=== PATIENT | female | born 1995 | race Caucasian/White ===

== ENCOUNTER 2019-06-05 12:20 | Observation (INO) | payer OTHER ==
[~2019-06-05] VITALS: Ht 157.5 cm; Wt 68.0 kg
[2019-06-05] MEDS ORDERED: PREN-380 PO (12:30)
[2019-06-05 13:22] LABS: BASOPHILS % (AUTO) 0.3 % (0.0-2.0); EOSINOPHILS # (AUTO) 0.1 K/uL (0-0.4); EOSINOPHILS % (AUTO) 0.9 % (0.0-4.0); HEMATOCRIT 37.2 % (36-48); HEMOGLOBIN 12.4 g/dL (12.0-16.0); LYMPHOCYTES # (AUTO) 1.3 K/uL (2.5-16.5); LYMPHOCYTES % (AUTO) 15.9 % (20.5-51.1); MEAN CORPUSCULAR HEMOGLOBIN 31 pg (27-31); MEAN CORPUSCULAR HGB CONC 33 g/dL (33-37); MEAN CORPUSCULAR VOLUME 91.2 fL (80-94); MONOCYTES # (AUTO) 0.4 K/uL (0.8-1.0); MONOCYTES % (AUTO) 5.2 % (1.7-9.3); NEUTROPHILS # (AUTO) 6.4 K/uL (1.8-7.7); NEUTROPHILS % (AUTO) 77.7 % (42.2-75.2); PLATELET COUNT (AUTO) 202 K/uL (140-450); RED BLOOD CELL COUNT(AUTO) 4.08 MIL/uL (4.20-5.40); RED CELL DISTRIBUTION WIDTH 13.2 % (11.6-13.7); WHITE BLOOD COUNT (AUTO) 8.3 K/uL (4.8-10.8)
[2019-06-05 14:12] LABS: PROTHROMBIN TIME 9.3 secs (10.8-13.4)
== END 2019-06-05 16:54 | disposition home or self-care (01) ==
LOC: MLD 12:20
PROVIDERS: ADMIT Obstetrics & Gynecology; ATTEND Obstetrics & Gynecology
DX: O9A.213 Injury, poisoning and certain other consequences of external causes complicating pregnancy, third trimester (principal); V89.2XXA Person injured in unspecified motor-vehicle accident, traffic, initial encounter; Y93.89 Activity, other specified; Y92.410 Unspecified street and highway as the place of occurrence of the external cause; Z88.2 Allergy status to sulfonamides; Z3A.35 35 weeks gestation of pregnancy
CPT/HCPCS: 36415; 76805; 85025; 85379; 85384; 85610; 85730; 86886; 86900; 86901; G0378; Q0092

== ENCOUNTER 2019-07-13 14:21 | Observation (INO) | payer OTHER ==
[~2019-07-13] VITALS: Ht 157.5 cm; Wt 70.8 kg
[~2019-07-13 14:21] MED LIST: PREN-380 PO
[2019-07-13 14:45] VITALS: BP 121/72
[2019-07-13] MEDS ORDERED: ACYC800T1 PO (15:10)
== END 2019-07-13 17:10 | disposition home or self-care (01) ==
LOC: MLD 14:21
PROVIDERS: ADMIT Obstetrics & Gynecology; ATTEND Obstetrics & Gynecology
DX: O36.8130 Decreased fetal movements, third trimester, not applicable or unspecified (principal); O48.0 Post-term pregnancy; Z3A.41 41 weeks gestation of pregnancy
CPT/HCPCS: 76815; 81000; G0378; Q0092

== ENCOUNTER 2019-07-14 10:16 | Inpatient (IN) | payer OTHER ==
[~2019-07-14] VITALS: Ht 157.5 cm; Wt 70.8 kg
[~2019-07-14 10:16] MED LIST changes: +ACYC800T1 PO; +BUPIVACAINE-MPF 0.75% 10 ML VIAL INJ ONE; +MORPHINE PRES FREE 10 MG/10 ML AMP IV ONE
[2019-07-14] MEDS ORDERED: METHYLERGONOVINE 0.2 MG/ML AMP IM PRN (10:40)
[2019-07-14] MEDS ORDERED: CARBOPROST 250 MCG/ML AMP IM PRN (10:40)
[2019-07-14 11:00] VITALS: BP 128/83
[2019-07-14 11:31] LABS: BASOPHILS % (AUTO) 0.3 % (0.0-2.0); EOSINOPHILS # (AUTO) 0.1 K/uL (0-0.4); EOSINOPHILS % (AUTO) 0.9 % (0.0-4.0); HEMOGLOBIN 13.2 g/dL (12.0-16.0); LYMPHOCYTES # (AUTO) 1.5 K/uL (2.5-16.5); LYMPHOCYTES % (AUTO) 17.5 % (20.5-51.1); MEAN CORPUSCULAR HEMOGLOBIN 31 pg (27-31); MEAN CORPUSCULAR HGB CONC 34 g/dL (33-37); MEAN CORPUSCULAR VOLUME 91.5 fL (80-94); MONOCYTES # (AUTO) 0.6 K/uL (0.8-1.0); MONOCYTES % (AUTO) 6.3 % (1.7-9.3); NEUTROPHILS # (AUTO) 6.6 K/uL (1.8-7.7); PLATELET COUNT (AUTO) 199 K/uL (140-450); RED BLOOD CELL COUNT(AUTO) 4.27 MIL/uL (4.20-5.40); RED CELL DISTRIBUTION WIDTH 13.5 % (11.6-13.7); WHITE BLOOD COUNT (AUTO) 8.8 K/uL (4.8-10.8)
[2019-07-14 11:44] LABS: APPEARANCE,URINE CLEAR (CLEAR); BILIRUBIN,URINE NEGATIVE (NEGATIVE); BLOOD, URINE 3+ (NEGATIVE); COLOR,URINE YELLOW (YELLOW); LEUKOCYTE ESTERASE ,URINE NEGATIVE (NEGATIVE); NITRITE, URINE NEGATIVE (NEGATIVE); PH,URINE 6.5 (5.0-9.0); UGLUCOSE NEGATIVE (NEGATIVE)
[2019-07-14] MEDS: MISOPROSTOL 25 MCG TAB VG SCH ×2 (11:54→15:56)
[2019-07-14 12:09] LABS: WBC,URINE 0-5 /HPF (0-5)
[2019-07-14 20:54] VITALS: BP 144/90
[2019-07-14] MEDS: LACTATED RINGERS 1,000 ML IV SCH (23:08)
[2019-07-14] MEDS ORDERED: LIDOCAINE 1% 500 MG/50 ML VIAL ONE (23:50)
[2019-07-14] MEDS ORDERED: OXYTOCIN 20 UNITS/LR PREMIX 1,000 ML IV PRN (23:55)
[2019-07-14] MEDS ORDERED: LIDOCAINE MPF 1% 10 MG/ML VIAL INJ PRN (23:55)
[2019-07-15] MEDS: LACTATED RINGERS 1,000 ML IV SCH (02:34)
[2019-07-15] MEDS ORDERED: CITRIC ACID/SODIUM CITRATE 30 ML UDC PO ONE ×2 (04:30→04:35)
[2019-07-15] MEDS ORDERED: MORPHINE PRES FREE 10 MG/10 ML AMP IV ONE (04:41)
[2019-07-15] MEDS ORDERED: ceFAZolin 1,000 MG VIAL ONE (05:02)
[2019-07-15] MEDS ORDERED: diphenhydrAMINE 50 MG/ML VIAL ONE (05:35)
[2019-07-15] MEDS ORDERED: ONDANSETRON 4 MG/2 ML VIAL ONE (05:35)
[2019-07-15] MEDS ORDERED: OXYTOCIN 10 UNITS in LACTATED RINGERS 1,000 ML IV SCH (06:18)
[2019-07-15] MEDS ORDERED: MEASLES, MUMPS, AND RUBELLA 1 VIAL SQVAC PRN (06:20)
[2019-07-15] MEDS ORDERED: oxyCODONE/APAP 5/325 MG 1 TAB TAB PO PRN (06:20)
[2019-07-15] MEDS ORDERED: METHYLERGONOVINE 0.2 MG/ML AMP IM PRN (06:20)
[2019-07-15] MEDS: OXYTOCIN 20 UNITS/LR PREMIX 1,000 ML IV ONE ×2 (07:09→07:25)
--- NOTE | 2019-07-15 08:52 | NUR ---
PATIENT HAS BEEN SCREENED AND CATEGORIZED LOW NUTRITION RISK. PATIENT WILL BE SEEN WITHIN 7 DAYS OF ADMISSION. 07/20/[address]
[2019-07-15] MEDS ORDERED: BISACODYL 10 MG SUPP RC SCH (09:00)
[2019-07-15] MEDS ORDERED: OXYTOCIN 20 UNITS in LACTATED RINGERS 1,000 ML IV SCH (13:25)
[2019-07-15] MEDS ORDERED: KETOROLAC 30 MG/ML VIAL IVP PRN (17:55)
[2019-07-16] MEDS ORDERED: OXYTOCIN 20 UNITS/LR PREMIX 1,000 ML IV ONE (01:24)
[2019-07-16 06:13] LABS: BASOPHILS % (AUTO) 0.2 % (0.0-2.0); EOSINOPHILS % (AUTO) 0.2 % (0.0-4.0); HEMATOCRIT 35.1 % (36-48); HEMOGLOBIN 11.7 g/dL (12.0-16.0); LYMPHOCYTES # (AUTO) 1.7 K/uL (2.5-16.5); LYMPHOCYTES % (AUTO) 13.1 % (20.5-51.1); MEAN CORPUSCULAR HEMOGLOBIN 31 pg (27-31); MEAN CORPUSCULAR HGB CONC 33 g/dL (33-37); MEAN CORPUSCULAR VOLUME 92.6 fL (80-94); MONOCYTES # (AUTO) 0.9 K/uL (0.8-1.0); MONOCYTES % (AUTO) 7.2 % (1.7-9.3); NEUTROPHILS # (AUTO) 10.1 K/uL (1.8-7.7); NEUTROPHILS % (AUTO) 79.3 % (42.2-75.2); PLATELET COUNT (AUTO) 163 K/uL (140-450); RED CELL DISTRIBUTION WIDTH 13.8 % (11.6-13.7); WHITE BLOOD COUNT (AUTO) 12.7 K/uL (4.8-10.8)
[2019-07-16] MEDS ORDERED: ACETAMINOPHEN EXTRA STRENGTH 500 MG TAB PO PRN (12:15)
[2019-07-16] MEDS ORDERED: IBUPROFEN 800 MG TAB PO PRN (12:15)
[2019-07-17] MEDS ORDERED: CAMERA MC ONE (03:40)
[2019-07-17] MEDS ORDERED: IBUP-2213 PO (10:40)
[2019-07-17] MEDS ORDERED: HYDR-5122 PO (10:40)
== END 2019-07-17 12:40 | disposition home or self-care (01) | DRG 540 ==
LOC: MLD 10:16 → MFCC 07-15 07:43
PROVIDERS: ADMIT Obstetrics & Gynecology; ATTEND Obstetrics & Gynecology
PROC: 3E0P7VZ Introduction of Hormone into Female Reproductive, Via Natural or Artificial Opening (ICD-10-PCS; 2019-07-14)
PROC: 10D00Z1 Extraction of Products of Conception, Low, Open Approach (ICD-10-PCS; principal; 2019-07-15 04:30)
DX: O62.2 Other uterine inertia (principal); O41.03X0 Oligohydramnios, third trimester, not applicable or unspecified; O48.0 Post-term pregnancy; Z37.0 Single live birth; Z3A.41 41 weeks gestation of pregnancy
CPT/HCPCS: 36415; 59200; 81001; 85025; 86592; 86886; 86900; 86901; 87086; J0690; J1200; J1885; J2001; J2270; J2405; J2590; J3490; J7060; J7120